=== PATIENT | female | born 1990 | race Caucasian/White ===

== ENCOUNTER 2022-04-22 13:24 | Outpatient (CLI) | payer OTHER ==
[2022-04-22] MEDS ORDERED: iohexoL 240 mgI/mL, 50 ML INFUS..BTL IV ONE (13:38)
== END 2022-04-22 19:46 | disposition home or self-care (01) ==
LOC: SRD 13:24
PROVIDERS: ATTEND Specialist
DX: N92.6 Irregular menstruation, unspecified (principal); N73.6 Female pelvic peritoneal adhesions (postinfective)
CPT/HCPCS: 74740; 58340; Q9966; C1751